=== PATIENT | female | born 1965 | race Caucasian/White ===

== ENCOUNTER → 2016-10-15 | Outpatient (CLI) | payer OTHER | END | disposition home or self-care (01) | LOC: LABWHC1 13:56 | PROVIDERS: ATTEND Internal Medicine Interventional Cardiology | DX: E03.9 Hypothyroidism, unspecified (principal); I25.10 Atherosclerotic heart disease of native coronary artery without angina pectoris | CPT/HCPCS: 36415; 84439; 84443 ==

== ENCOUNTER → 2016-12-01 | Outpatient (CLI) | payer OTHER | LOC: LABWHC1 09:10 | PROVIDERS: ATTEND Internal Medicine Interventional Cardiology | DX: E03.9 Hypothyroidism, unspecified (principal) | CPT/HCPCS: 36415; 84439; 84443 ==

== ENCOUNTER → 2017-04-21 | Outpatient (CLI) | payer OTHER | END | disposition home or self-care (01) | LOC: LABWHC1 14:42 | PROVIDERS: ATTEND Internal Medicine Interventional Cardiology | DX: E03.9 Hypothyroidism, unspecified (principal) | CPT/HCPCS: 36415; 84439; 84443 ==

== ENCOUNTER → 2017-06-04 | Outpatient (CLI) | payer OTHER ==
--- NOTE | 2017-06-04 13:45 | MM ---
Reason for exam: screening (asymptomatic). Last mammogram was performed 1 year and 4 months ago. History: Patient is postmenopausal. Physical Findings: A clinical breast exam by your physician is recommended on an annual basis and results should be correlated with mammographic findings. MG Screening Mammo w CAD Bilateral CC and MLO view(s) were taken. Prior study comparison: January 28, 2016, bilateral MG screening mammo w CAD. There are scattered fibroglandular densities. Finding: There are typically benign calcifications in the left breast. No significant changes in finding since January 28, 2016. ASSESSMENT: Benign, BI-RAD 2 RECOMMENDATION: Routine screening mammogram of both breasts in 1 year.
== END | disposition home or self-care (01) ==
LOC: RADMAMWWP 07:01
PROVIDERS: ATTEND Family Medicine
DX: Z12.31 Encounter for screening mammogram for malignant neoplasm of breast (principal)

== ENCOUNTER → 2017-09-29 | Outpatient (CLI) | payer OTHER ==
[2017-09-29 11:28] LABS: T4, Free (Free Thyroxine) 1.07 ng/dL (0.78-2.19)
== END | disposition home or self-care (01) ==
LOC: LABWHC1 10:09
PROVIDERS: ATTEND Internal Medicine Interventional Cardiology
DX: I25.10 Atherosclerotic heart disease of native coronary artery without angina pectoris (principal); E03.9 Hypothyroidism, unspecified
CPT/HCPCS: 36415; 84439; 84443

== ENCOUNTER → 2017-11-09 | Outpatient (CLI) | payer OTHER ==
[2017-11-09 12:14] LABS: T4, Free (Free Thyroxine) 1.03 ng/dL (0.78-2.19)
== END | disposition home or self-care (01) ==
LOC: LABWHC1 11:19
PROVIDERS: ATTEND Internal Medicine Interventional Cardiology
DX: E87.5 Hyperkalemia (principal)
CPT/HCPCS: 36415; 84439; 84443

== ENCOUNTER → 2018-06-07 | Outpatient (CLI) | payer MEDICARE, OTHER ==
--- NOTE | 2018-06-08 08:52 | MM ---
Reason for exam: screening (asymptomatic). Last mammogram was performed 1 year ago. History: Patient is postmenopausal. Physical Findings: A clinical breast exam by your physician is recommended on an annual basis and results should be correlated with mammographic findings. MG 3D Screening Mammo W/Cad Bilateral CC and MLO view(s) were taken. Prior study comparison: June 04, 2017, bilateral MG screening mammo w CAD. January 28, 2016, bilateral MG screening mammo w CAD. There are scattered fibroglandular densities. No suspicious abnormality. No significant changes when compared with prior studies. ASSESSMENT: Negative, BI-RAD 1 RECOMMENDATION: Routine screening mammogram of both breasts in 1 year.
== END ==
LOC: RADMAMWWP 09:39
PROVIDERS: ATTEND Family Medicine
DX: Z12.31 Encounter for screening mammogram for malignant neoplasm of breast (principal)
CPT/HCPCS: 77063; 77067

== ENCOUNTER 2019-05-23 11:22 | Day surgery (SDC) | payer MEDICARE, OTHER ==
[2019-05-23 12:28] VITALS: RESP 18; TEMP 98.5
[2019-05-23 14:39] VITALS: BP 146/80; PULSE 76
--- NOTE | 2019-05-23 14:53 | US ---
EXAMINATION TYPE: US FNA thyroid first lesion DATE OF EXAM: 05/23/2019 COMPARISON: NONE HISTORY: Thyroid nodule. Maximal barrier technique was utilized. After informed consent, skin overlying the isthmus thyroid l esion was localized with ultrasound and the overlying skin prepped and draped. Ultrasound was utilize d using sterile technique. Lidocaine was used for local anesthesia. Five passes with a 25-gauge need le were made into the nodule and aspirated specimen was submitted to cytology. Following the procedu re hemostasis achieved. No immediate complication. The patient discharged in stable condition. IMPRESSION: STATUS POST ULTRASOUND GUIDED FINE NEEDLE ASPIRATION OF THYROID NODULE, PATHOLOGY IS PEND ING. THIS PROCEDURE WAS PERFORMED BY THE UNDERSIGNED.
== END 2019-05-23 14:20 | disposition home or self-care (01) ==
LOC: RADPROMAIN 11:22
PROVIDERS: ATTEND Family Medicine
DX: E04.1 Nontoxic single thyroid nodule (principal)
CPT/HCPCS: 10005; 88173; 88305

== ENCOUNTER 2019-08-24 06:44 | Day surgery (SDC) | payer MEDICARE, OTHER ==
[2019-08-19 10:11] VITALS: BMI 40.7
[~2019-08-24 06:44] MED LIST: LACTATED RINGERS 1,000 ML IV SCH; LIDOCAINE 1% 20 ML VIAL (10MG/ML) FOR IV START INTRADERMA PRN
[2019-08-24 07:22] VITALS: TEMP 97.1
[2019-08-24 07:33] LABS: Glucose,Whole Blood 122 mg/dL (75-99)
[2019-08-24] MEDS ORDERED: PROPOFOL 10 MG/ML 20 ML VIAL IV ONE (07:40)
--- NOTE | 2019-08-24 07:59 | P.GSHP ---
History of Present Illness H&P Date: 08/24/19 Chief Complaint: Screening colonoscopy This a 54-year-old female who presents today for screening colonoscopy. Patient has a strong family history of colon cancer with her mother having rectal cancer. Past Medical History Past Medical History: Coronary Artery Disease (CAD), Diabetes Mellitus, GERD/Reflux, Hyperlipidemia, Hypertension, Myocardial Infarction ([place]), Osteoarthritis (OA), Thyroid Disorder Additional Past Medical History / Comment(s): thyroid nodule Last Myocardial Infarction Date:: 2012 History of Any Multi-Drug Resistant Organisms: None Reported Past Surgical History: Section, Heart Catheterization With Stent, Hysterectomy, Orthopedic Surgery Additional Past Surgical History / Comment(s): RT CARPAL TUNNEL release, left wrist fatty tissue removal. COLONOSCOPY Past Anesthesia/Blood Transfusion Reactions: No Reported Reaction Date of Last Stent Placement:: 2012 Smoking Status: Current some day smoker - Past Family History Father Family Medical History: Myocardial Infarction ([place]) Mother Family Medical History: Cancer Medications and Allergies Home Medications Medication Instructions Recorded Confirmed Type Atorvastatin [Lipitor] 40 mg PO DAILY 02/27/14 08/24/19 History Metoprolol Tartrate [Lopressor] 25 mg PO BID 02/27/14 08/24/19 History Nitroglycerin Sl Tabs [Nitrostat] 0.4 mg SL Q5M PRN 02/27/14 08/24/19 History Aspirin 81 mg PO DAILY 05/09/14 08/24/19 History ARIPiprazole [Abilify] 5 mg PO DAILY 05/16/19 08/24/19 History Gabapentin [Neurontin] 600 mg PO BID 05/16/19 08/24/19 History Insulin Glargine [Lantus] 30 units SQ DAILY 05/16/19 08/24/19 History Levothyroxine Sodium [Synthroid] 25 mcg PO DAILY 05/16/19 08/24/19 History Liraglutide [Victoza 2-Boubacar] 1.2 mg SQ DAILY 05/16/19 08/24/19 History Lisinopril 20 mg PO DAILY 05/16/19 08/24/19 History Omeprazole [PriLOSEC] 20 mg PO AC-BID 05/16/19 08/24/19 History buPROPion [Wellbutrin] 100 mg PO BID 05/16/19 08/24/19 History metFORMIN HCL 1,000 mg PO BID 05/16/19 08/24/19 History Allergies Allergy/AdvReac Type Severity Reaction Status Date / Time bee venom protein (honey bee) Allergy Rash/Hives Verified 08/19/19 09:57 coconut Allergy Rash/Hives Verified 08/19/19 09:57 Penicillins Allergy Rash/Hives Verified 08/19/19 09:57 Surgical - Exam Vital Signs Temp Pulse Resp BP 97.1 F L 92 14 156/78 08/24/19 07:21 08/24/19 07:21 08/24/19 07:21 08/24/19 07:21 - General well developed, well nourished, no distress - Eyes PERRL - ENT normal pinna - Neck no masses - Respiratory normal expansion - Cardiovascular Rhythm: regular - Abdomen Abdomen: soft, non tender Results - Labs Abnormal Lab Results - Last 24 Hours (Table) 08/24/19 Range/Units 07:26 POC Glucose (mg/dL) 122 H (75-99) mg/dL Assessment and Plan Assessment: We will perform screening colonoscopy
--- NOTE | 2019-08-24 08:11 | P.OP ---
Date of Procedure: 08/24/19 Preoperative Diagnosis: Screening colonoscopy Postoperative Diagnosis: Diverticulosis Procedure(s) Performed: Colonoscopy Anesthesia: MAC Surgeon: Samm Morris Pathology: none sent Condition: stable Disposition: PACU Description of Procedure: The patient's placed on the endoscopy table in the lateral position. She received IV sedation. Digital rectal exam was performed which revealed a few external hemorrhoids. Flexible colonoscope was then placed patient anus passed rotator entire colon. The ileocecal valve was visually. The cecum, ascending and transverse colon appeared normal. In the descending and sigmoid colon there is mild diverticular changes. There is no evidence of diverticula is. The scope was then brought back the rectum and this appeared normal. Scope withdrawn for patient.
[2019-08-24 08:27] VITALS: BP 126/72; PULSE 83; RESP 16
== END 2019-08-24 08:47 | disposition home or self-care (01) ==
LOC: ORWHC2ENDO 06:44
PROVIDERS: ATTEND Surgery
DX: Z12.11 Encounter for screening for malignant neoplasm of colon (principal); K57.30 Diverticulosis of large intestine without perforation or abscess without bleeding; K64.4 Residual hemorrhoidal skin tags; Z80.0 Family history of malignant neoplasm of digestive organs; I25.2 Old myocardial infarction; I25.10 Atherosclerotic heart disease of native coronary artery without angina pectoris; I10 Essential (primary) hypertension; E78.5 Hyperlipidemia, unspecified; E11.9 Type 2 diabetes mellitus without complications; M19.90 Unspecified osteoarthritis, unspecified site; K21.9 Gastro-esophageal reflux disease without esophagitis; F41.9 Anxiety disorder, unspecified; E66.01 Morbid (severe) obesity due to excess calories; E04.1 Nontoxic single thyroid nodule; F17.210 Nicotine dependence, cigarettes, uncomplicated; Z95.5 Presence of coronary angioplasty implant and graft; Z88.0 Allergy status to penicillin; Z91.018 Allergy to other foods; Z91.030 Bee allergy status; Z79.890 Hormone replacement therapy; Z79.4 Long term (current) use of insulin; Z79.82 Long term (current) use of aspirin; Z98.891 History of uterine scar from previous surgery; Z90.710 Acquired absence of both cervix and uterus; Z68.41 Body mass index [BMI] 40.0-44.9, adult; Z82.49 Family history of ischemic heart disease and other diseases of the circulatory system; Z79.899 Other long term (current) drug therapy
CPT/HCPCS: J2704; G0105; 45378

== ENCOUNTER → 2019-09-13 | Outpatient (CLI) | payer MEDICARE, OTHER ==
--- NOTE | 2019-09-14 11:21 | MM ---
Reason for exam: screening (asymptomatic). Last mammogram was performed 1 year and 3 months ago. History: Patient is postmenopausal. Physical Findings: A clinical breast exam by your physician is recommended on an annual basis and results should be correlated with mammographic findings. MG Screening Mammo w CAD Bilateral CC and MLO view(s) were taken. Prior study comparison: June 07, 2018, bilateral MG 3d screening mammo w/cad. June 04, 2017, bilateral MG screening mammo w CAD. There are scattered fibroglandular densities. No suspicious abnormality. No significant changes when compared with prior studies. ASSESSMENT: Negative, BI-RAD 1 RECOMMENDATION: Routine screening mammogram of both breasts in 1 year.
== END | disposition home or self-care (01) ==
LOC: RADMAMWWP 07:42
PROVIDERS: ATTEND Family Medicine
DX: Z12.31 Encounter for screening mammogram for malignant neoplasm of breast (principal)
CPT/HCPCS: 77067

== ENCOUNTER → 2020-12-13 | Outpatient (CLI) | payer MEDICARE, OTHER ==
[2020-12-13 07:37] LABS: African American GFR (CKD) >90 (>60 ml/min/1.73 sqM); Blood Urea Nitrogen 14 mg/dL (7-17); Non-African American GFR(CKD) >90 (>60 ml/min/1.73 sqM)
--- NOTE | 2020-12-13 08:29 | CT ---
EXAMINATION TYPE: CT brain w con DATE OF EXAM: 12/13/2020 COMPARISON: MRI brain February 26, 2016 HISTORY: syncope and palpitations. CT DLP: 1012.70 mGycm Automated exposure control for dose reduction was used. CONTRAST: CT scan of the head is performed with IV Contrast, patient injected with 100 mL of Isovue 300. FINDINGS: There is no abnormal enhancing mass or midline shift identified. The ventricles and sulci are within normal limits in size for patient's age. Morgan-white matter differentiation fairly well maintained. I ncreased fluid signal left mastoid air cells is redemonstrated. The globes are intact and the visuali zed sinuses remain clear. Nasal septum remains deviated to right of midline. IMPRESSION: Persistent increased fluid signal left mastoid air cells, correlate clinically to exclude acute mastoiditis. No suspicious enhancing masses noted.
== END | disposition home or self-care (01) ==
LOC: RADCTMAIN 06:56
PROVIDERS: ATTEND Family Medicine
DX: R55 Syncope and collapse (principal); R00.2 Palpitations
CPT/HCPCS: 82565; 84520; 70460; 36415; Q9967

== ENCOUNTER 2020-12-30 16:36 | Emergency (ER) | payer MEDICARE, OTHER ==
[2020-12-30 16:49] VITALS: RESP 18; TEMP 97.8
--- NOTE | 2020-12-30 16:56 | ED ---
Extremity Problem HPI - General Chief complaint: Extremity Problem,Nontraumatic Stated complaint: Knee pain Time Seen by Provider: 12/30/20 16:49 Source: patient Mode of arrival: wheelchair Limitations: physical limitation - History of Present Illness Initial comments: 55-year-old female presents to emergency Department with a chief complaint of right knee pain. Patient reports this occurred about 2 hours prior to arrival while she was walking on the stairs. Patient reports a sudden pop in the popliteal region of the right knee and was not able to fully flex the knee afterward. Patient reports the pain is only localized to the popliteal region with occasional radiation to the hamstring. Reports the pain is exacerbated with flexion but not extension. Denies any numbness or tingling. Denies any pivoting injuries. - Related Data Home Medications Medication Instructions Recorded Confirmed Atorvastatin [Lipitor] 40 mg PO DAILY 02/27/14 08/24/19 Metoprolol Tartrate [Lopressor] 25 mg PO BID 02/27/14 08/24/19 Nitroglycerin Sl Tabs [Nitrostat] 0.4 mg SL Q5M PRN 02/27/14 08/24/19 Aspirin 81 mg PO DAILY 05/09/14 08/24/19 ARIPiprazole [Abilify] 5 mg PO DAILY 05/16/19 08/24/19 Gabapentin [Neurontin] 600 mg PO BID 05/16/19 08/24/19 Insulin Glargine [Lantus] 30 units SQ DAILY 05/16/19 08/24/19 Levothyroxine Sodium [Synthroid] 25 mcg PO DAILY 05/16/19 08/24/19 Liraglutide [Victoza 2-Boubacar] 1.2 mg SQ DAILY 05/16/19 08/24/19 Omeprazole [PriLOSEC] 20 mg PO AC-BID 05/16/19 08/24/19 buPROPion [Wellbutrin] 100 mg PO BID 05/16/19 08/24/19 lisinopriL 20 mg PO DAILY 05/16/19 08/24/19 metFORMIN HCL 1,000 mg PO BID 05/16/19 08/24/19 Allergies Allergy/AdvReac Type Severity Reaction Status Date / Time bee venom protein (honey bee) Allergy Rash/Hives Verified 12/30/20 16:50 coconut Allergy Rash/Hives Verified 12/30/20 16:50 Penicillins Allergy Rash/Hives Verified 12/30/20 16:50 Review of Systems ROS Statement: Those systems with pertinent positive or pertinent negative responses have been documented in the HPI. ROS Other: All systems not noted in ROS Statement are negative. Past Medical History Past Medical History: Coronary Artery Disease (CAD), Diabetes Mellitus, Hyperlipidemia, Hypertension, Myocardial Infarction ([place]), Osteoarthritis (OA), Thyroid Disorder Additional Past Medical History / Comment(s): thyroid nodule Last Myocardial Infarction Date:: 2012 History of Any Multi-Drug Resistant Organisms: None Reported Past Surgical History: Section, Heart Catheterization With Stent, Hysterectomy, Orthopedic Surgery Additional Past Surgical History / Comment(s): RT CARPAL TUNNEL release, left wrist fatty tissue removal Past Anesthesia/Blood Transfusion Reactions: No Reported Reaction Date of Last Stent Placement:: 2012 Past Psychological History: Anxiety Smoking Status: Current every day smoker Past Alcohol Use History: None Reported Past Drug Use History: None Reported - Past Family History Father Family Medical History: Myocardial Infarction ([place]) Mother Family Medical History: Cancer General Exam Limitations: physical limitation General appearance: alert, in no apparent distress, obese Head exam: Present: atraumatic, normocephalic, normal inspection Eye exam: Present: normal appearance, PERRL, EOMI Pupils: Present: normal accommodation ENT exam: Present: normal exam, normal oropharynx, mucous membranes moist Neck exam: Present: normal inspection, full ROM. Absent: tenderness Respiratory exam: Present: normal lung sounds bilaterally. Absent: respiratory distress, wheezes Cardiovascular Exam: Present: regular rate, normal rhythm, normal heart sounds. Absent: systolic murmur Extremities exam: Present: normal inspection, tenderness (Right popliteal tenderness), normal capillary refill, other (Palpable DP and PT bilaterally. Sensation intact in right lower extremity.). Absent: full ROM (Limited range of motion with flexion), pedal edema, joint swelling, calf tenderness Back exam: Present: normal inspection, full ROM. Absent: tenderness, CVA tenderness (R), CVA tenderness (L) Neurological exam: Present: alert, oriented X3 Psychiatric exam: Present: normal affect, normal mood Skin exam: Present: warm, dry, intact, normal color Course Vital Signs 12/30/20 12/30/20 16:47 17:45 Temperature 97.8 F 97.8 F Pulse Rate 85 80 Respiratory 18 18 Rate Blood Pressure 146/86 119/76 O2 Sat by Pulse 95 95 Oximetry Medical Decision Making - Medical Decision Making 55-year-old female presents to emergency Department with a chief complaint of right knee pain. Physical examination, patient is neurovascularly intact. X- ray shows osteoarthritic changes but no other acute findings. I suspect the patient had a ruptured Elias's cyst. I did offer an immobilizer, she declined. I advised to follow-up with an auricular detoxification specialist. Return parameters were discussed with patient is an attending ago. Case discussed with Disposition Clinical Impression: Left knee pain Disposition: HOME SELF-CARE Condition: Stable Instructions (If sedation given, give patient instructions): Bakers Cyst (ED) Additional Instructions: Please return to the Emergency Department if symptoms worsen or any other concerns. Is patient prescribed a controlled substance at d/c from ED?: No Referrals: Yajaira Lizama DO [Primary Care Provider] - 1-2 days Darwin Benites DO [Doctor of Osteopathic Medicine] - 1-2 days Harman Benites DO [Doctor of Osteopathic Medicine] - 1-2 days Time of Disposition: 17:35
--- NOTE | 2020-12-30 17:25 | XR ---
EXAMINATION TYPE: XR knee complete RT DATE OF EXAM: 12/30/2020 COMPARISON: NONE HISTORY: Knee pain TECHNIQUE: 3 views FINDINGS: There is spurring of the femoral and tibial condyles. I see no fracture nor dislocation. Th ere is no sign of joint effusion. There is mild spurring on the patella. IMPRESSION: Hypertrophic osteoarthritis. No fracture. Mild medial joint space narrowing.
[2020-12-30 17:46] VITALS: BP 119/76; PULSE 80
== END 2020-12-30 17:45 | disposition home or self-care (01) ==
LOC: EC 16:36
DX: M17.11 Unilateral primary osteoarthritis, right knee (principal); E11.9 Type 2 diabetes mellitus without complications; I25.10 Atherosclerotic heart disease of native coronary artery without angina pectoris; E07.9 Disorder of thyroid, unspecified; E78.5 Hyperlipidemia, unspecified; I10 Essential (primary) hypertension; I21.9 Acute myocardial infarction, unspecified; F17.200 Nicotine dependence, unspecified, uncomplicated; Z79.84 Long term (current) use of oral hypoglycemic drugs; Z79.890 Hormone replacement therapy
CPT/HCPCS: 99283

== ENCOUNTER → 2021-01-22 | Outpatient (CLI) | payer MEDICARE, OTHER ==
--- NOTE | 2021-01-22 09:52 | MR ---
EXAMINATION TYPE: MR knee RT wo con DATE OF EXAM: 01/22/2021 COMPARISON: Right knee x-ray December 30, 2020 HISTORY: Right knee pain, going down stairs heard a pop. Pain and swelling thru entire Right Knee TECHNIQUE: Multiplanar, multisequence imaging of the right knee is performed without IV contrast. FINDINGS: MEDIAL MENISCUS: Medial extrusion medial meniscus on coronal images Oblique signal posterior horn med ial meniscus. LATERAL MENISCUS: Anterior and posterior horns are intact without tear. CRUCIATE LIGAMENTS: The anterior and posterior cruciate ligaments are intact and unremarkable. COLLATERAL LIGAMENTS: The medial collateral ligament and lateral collateral ligament complex are inta ct. Mild fluid signal surrounds medial collateral ligament with slight medial bulging. EXTENSOR MECHANISM: Visualized quadriceps and patellar tendons are intact. EFFUSION: Large suprapatellar joint effusion. POPLITEAL CYST: Moderate to large popliteal/dalton cyst. With ill-defined fluid extending inferiorly. TRICOMPARTMENT SPACES: Moderate to severe narrowing with mild spurring patellofemoral compartment. Mo derate narrowing and spurring medial tibial femoral compartment. Mild narrowing and moderate spurring lateral tibiofemoral compartment. CARTILAGE: Chondromalacia patella with marked thinning of articular cartilage along posterior patella r pole. Cartilaginous loss medial tibiofemoral compartment. There is near full-thickness loss both le vels noted. BONE MARROW SIGNAL: T2 heterogeneous lesions likely subchondral cysts in the tibial plateau and in th e fibular head along with posterior patellar articulation. OTHER: No additional significant abnormality is appreciated. IMPRESSION: 1. Large suprapatellar joint effusion. 2. Tricompartment degenerative changes greatest patellofemoral and medial tibiofemoral compartments a s detailed above. 3. Moderate to borderline large size leaking popliteal cyst. 4. Intrasubstance tear posterior horn medial meniscus. 5. Mild MCL sprain.
== END | disposition home or self-care (01) ==
LOC: RADMRIMAIN 07:55
PROVIDERS: ATTEND Family Medicine
DX: S83.241A Other tear of medial meniscus, current injury, right knee, initial encounter (principal); M17.11 Unilateral primary osteoarthritis, right knee; M66.0 Rupture of popliteal cyst; M23.321 Other meniscus derangements, posterior horn of medial meniscus, right knee

== ENCOUNTER 2021-03-20 11:59 | Emergency (ER) | payer MEDICARE, OTHER ==
[2021-03-20 13:42] LABS: INR 0.9 (<1.2); Partial Thromboplastin Time 24.4 sec (22.0-30.0); Prothrombin Time 10.1 sec (9.0-12.0)
--- NOTE | 2021-03-20 14:14 | US ---
EXAMINATION TYPE: US venous doppler duplex LE RT DATE OF EXAM: 03/20/2021 1:06 PM COMPARISON: NONE CLINICAL HISTORY: pain. edema SIDE PERFORMED: Right TECHNIQUE: The lower extremity deep venous system is examined utilizing real time linear array sonog fidel with graded compression, doppler sonography and color-flow sonography. VESSELS IMAGED: Common Femoral Vein Deep Femoral Vein Greater Saphenous Vein * Femoral Vein Popliteal Vein Small Saphenous Vein * Proximal Calf Veins (* superficial vessels) Right Leg: Negative for DVT IMPRESSION: Grayscale, color doppler, spectral doppler imaging performed of the deep veins of the lo wer extremities. There is normal flow, compressibility, vascular waveforms.
--- NOTE | 2021-03-20 14:29 | ED ---
Extremity Problem HPI - General Chief complaint: Extremity Problem,Nontraumatic Stated complaint: Leg swelling Time Seen by Provider: 03/20/21 12:25 Source: patient, RN notes reviewed Mode of arrival: ambulatory Limitations: no limitations - History of Present Illness Initial comments: 56-year-old female presents to emergency room complaining of right lower extremity swelling and tenderness for the past several days. She notes she does take Plavix. She denied any injury or trauma to her right lower extremity. She does have full range of motion sensation in her right foot ankle and lower leg. She notes she was concerned due to the swelling for possible DVT. She denied any other issues or complaints at this time. She denied any chest pain sh ortness of breath headache nausea vomiting diarrhea constipation fever fatigue chills. - Related Data Home Medications Medication Instructions Recorded Confirmed Atorvastatin [Lipitor] 40 mg PO DAILY 02/27/14 08/24/19 Metoprolol Tartrate [Lopressor] 25 mg PO BID 02/27/14 08/24/19 Nitroglycerin Sl Tabs [Nitrostat] 0.4 mg SL Q5M PRN 02/27/14 08/24/19 Aspirin 81 mg PO DAILY 05/09/14 08/24/19 ARIPiprazole [Abilify] 5 mg PO DAILY 05/16/19 08/24/19 Gabapentin [Neurontin] 600 mg PO BID 05/16/19 08/24/19 Insulin Glargine [Lantus] 30 units SQ DAILY 05/16/19 08/24/19 Levothyroxine Sodium [Synthroid] 25 mcg PO DAILY 05/16/19 08/24/19 Liraglutide [Victoza 2-Boubacar] 1.2 mg SQ DAILY 05/16/19 08/24/19 Omeprazole [PriLOSEC] 20 mg PO AC-BID 05/16/19 08/24/19 buPROPion [Wellbutrin] 100 mg PO BID 05/16/19 08/24/19 lisinopriL 20 mg PO DAILY 05/16/19 08/24/19 metFORMIN HCL [Glucophage] 1,000 mg PO BID 05/16/19 08/24/19 Allergies Allergy/AdvReac Type Severity Reaction Status Date / Time bee venom protein (honey bee) Allergy Rash/Hives Verified 03/20/21 12:20 coconut Allergy Rash/Hives Verified 03/20/21 12:20 Penicillins Allergy Rash/Hives Verified 03/20/21 12:20 Review of Systems ROS Statement: Those systems with pertinent positive or pertinent negative responses have been documented in the HPI. ROS Other: All systems not noted in ROS Statement are negative. Past Medical History Past Medical History: Coronary Artery Disease (CAD), Diabetes Mellitus, Hyperlipidemia, Hypertension, Myocardial Infarction ([place]), Osteoarthritis (OA), Thyroid Disorder Additional Past Medical History / Comment(s): thyroid nodule Last Myocardial Infarction Date:: 2012 History of Any Multi-Drug Resistant Organisms: None Reported Past Surgical History: Section, Heart Catheterization With Stent, Hysterectomy, Orthopedic Surgery Additional Past Surgical History / Comment(s): RT CARPAL TUNNEL release, left wrist fatty tissue removal Past Anesthesia/Blood Transfusion Reactions: No Reported Reaction Date of Last Stent Placement:: 2012 Past Psychological History: Anxiety Smoking Status: Current some day smoker Past Alcohol Use History: None Reported Past Drug Use History: None Reported - Past Family History Father Family Medical History: Myocardial Infarction ([place]) Mother Family Medical History: Cancer General Exam Limitations: no limitations General appearance: alert, in no apparent distress Head exam: Present: atraumatic, normocephalic, normal inspection Eye exam: Present: normal appearance, PERRL, EOMI. Absent: scleral icterus, conjunctival injection, periorbital swelling Neck exam: Present: normal inspection Respiratory exam: Present: normal lung sounds bilaterally. Absent: respiratory distress, wheezes, rales, rhonchi, stridor Cardiovascular Exam: Present: regular rate, normal rhythm, normal heart sounds. Absent: systolic murmur, diastolic murmur, rubs, gallop, clicks Right Lower Leg exam: Present: full ROM, swelling (1+). Absent: normal inspection, tenderness, abrasion, laceration, ecchymosis, deformity, crepitus, dislocation, erythema, Homans' sign Neurological exam: Present: alert, oriented X3 Psychiatric exam: Present: normal affect, normal mood Skin exam: Present: warm, dry, intact, normal color. Absent: rash Course Vital Signs 03/20/21 12:20 Temperature 98.3 F Pulse Rate 78 Respiratory 20 Rate Blood Pressure 135/83 O2 Sat by Pulse 96 Oximetry Medical Decision Making - Medical Decision Making 56-year-old female complaining of right lower extremity swelling. Coagulation studies, ultrasound of the right lower extremity ordered. Labs within normal limits. Ultrasound negative for any DVT. Patient's leg does not appear to be infected, is not erythematous no signs or symptoms of infection. Case discussed with Dr. Rolle, patient discharge home with follow-up to primary care. - Lab Data Lab Results 03/20/21 Range/Units 13:22 PT 10.1 (9.0-12.0) sec INR 0.9 (<1.2) APTT 24.4 (22.0-30.0) sec - Radiology Data Radiology results: report reviewed, image reviewed Right lower extremity ultrasound: Negative for DVT. Disposition Clinical Impression: Edema of lower extremity Disposition: HOME SELF-CARE Condition: Stable Instructions (If sedation given, give patient instructions): Leg Edema (ED) Additional Instructions: Please return to the Emergency Department if symptoms worsen or any other concerns. Follow-up with primary care in the next 1-2 days. Wear compression stockings to help with fluid retention. Is patient prescribed a controlled substance at d/c from ED?: No Referrals: Radha Morel DO [Primary Care Provider] - 1-2 days Time of Disposition: 14:29
[2021-03-20 14:55] VITALS: BP 138/88; PULSE 73; RESP 18; TEMP 98
== END 2021-03-20 14:55 | disposition home or self-care (01) ==
LOC: EC 11:59
DX: R60.0 Localized edema (principal); E11.9 Type 2 diabetes mellitus without complications; I10 Essential (primary) hypertension; I25.2 Old myocardial infarction; I25.10 Atherosclerotic heart disease of native coronary artery without angina pectoris; E78.5 Hyperlipidemia, unspecified; E04.1 Nontoxic single thyroid nodule; M19.90 Unspecified osteoarthritis, unspecified site; F17.200 Nicotine dependence, unspecified, uncomplicated; Z79.899 Other long term (current) drug therapy; Z79.82 Long term (current) use of aspirin; Z79.890 Hormone replacement therapy; Z79.4 Long term (current) use of insulin; Z95.5 Presence of coronary angioplasty implant and graft; Z91.030 Bee allergy status; Z88.0 Allergy status to penicillin; Z91.018 Allergy to other foods
CPT/HCPCS: 36415; 85610; 85730; 99284

== ENCOUNTER → 2021-03-21 | Outpatient (CLI) | payer MEDICARE, OTHER ==
--- NOTE | 2021-03-21 21:22 | MR ---
EXAMINATION TYPE: MR lumbar spine wo con DATE OF EXAM: 03/21/2021 COMPARISON: NONE HISTORY: Low back pain, neuropathy in both legs. Radiculopathy per order. TECHNIQUE: Multiplanar, multisequence imaging of the lumbar spine is performed without IV contrast. FINDINGS: Sagittal images of the lumbar spine show vertebral body heights and alignment to appear sat isfactory. Multilevel disc desiccation with relative sparing of the L5-S1 level. Disc space heights a re maintained. The conus medullaris is normal in position and signal ending at L1-L2 disc space level . The bone marrow signal intensity is within normal limits. Axial images show T12-L1 through the L2-L3 levels to appear within normal limits. Axial images at L3-L4 level shows small left foraminal disc protrusion and mild facet arthropathy yvette aterally. Effacement of the left lateral recess is present. Mild effacement of the left anterolateral thecal sac due to inferior extrusion component sagittal image 7. Patent bilateral neural foramina. Axial images at L4-L5 level shows moderate facet degenerative changes bilaterally. Spinal canal is pr eserved. Patent bilateral neural foramina. Axial images at L5-S1 level mild facet arthropathy bilaterally. Spinal canal is preserved. The bilate ral neural foramina are patent. The paraspinal muscle bulk is preserved. There is 5.0 cm T2 hyperintense round lesion right kidney ax ial image 14 felt to reflect benign thin-walled cyst. IMPRESSION: Multilevel degenerative changes in the mid to lower lumbar spine as detailed above
== END | disposition home or self-care (01) ==
LOC: RADMRIMAIN 15:24
PROVIDERS: ATTEND Family Medicine
DX: M51.36 Other intervertebral disc degeneration, lumbar region (principal); M54.16 Radiculopathy, lumbar region
CPT/HCPCS: 72148

== ENCOUNTER → 2021-05-21 | Outpatient (CLI) | payer MEDICARE, OTHER ==
[2021-05-21 11:42] LABS: Basophils # (A) 0.1 k/uL (0-0.2); Basophils % (A) 1 %; Eosinophils # (A) 0.3 k/uL (0-0.7); Eosinophils % (A) 2 %; HCT 44.8 % (34.0-46.0); HGB 15.4 gm/dL (11.4-16.0); Lymphocytes # (A) 3.2 k/uL (1.0-4.8); Lymphocytes % (A) 26 %; MCH 33.4 pg (25.0-35.0); MCHC 34.4 g/dL (31.0-37.0); MCV 97.1 fL (80.0-100.0); Mean Platelet Volume 9.1; Monocytes # (A) 0.5 k/uL (0-1.0); Monocytes % (A) 4 %; Neutrophils # (A) 7.8 k/uL (1.3-7.7); Neutrophils % (A) 65 %; Platelet Count 247 k/uL (150-450); RBC 4.61 m/uL (3.80-5.40); RDW 13.8 % (11.5-15.5)
[2021-05-21 11:50] LABS: Potassium 4.6 mmol/L (3.5-5.1)
== END | disposition home or self-care (01) ==
LOC: LABPAT 10:26
PROVIDERS: ATTEND Orthopaedic Surgery
DX: Z01.812 Encounter for preprocedural laboratory examination (principal); M23.91 Unspecified internal derangement of right knee
CPT/HCPCS: 36415; 80051; 85025; 93005

== ENCOUNTER 2021-06-13 13:05 | Day surgery (SDC) | payer MEDICARE, OTHER ==
[2021-06-11 14:58] VITALS: BMI 39.1
--- NOTE | 2021-06-12 19:38 | HP ---
HISTORY AND PHYSICAL DATE OF SURGERY: 06/13/2021 Bety Cota is a 56-year-old patient seen with progressive right knee pain. We discussed options for treatment. She elected to proceed with right knee arthroscopy. Consent was obtained. PAST MEDICAL HISTORY: [id number] diabetes, hypertension, hypothyroidism. PAST SURGICAL HISTORY: section, wrist surgery. DAILY MEDICATIONS: Unknown. ALLERGIES: PENICILLIN. SOCIAL HISTORY: She currently smokes cigarettes. PHYSICAL EVALUATION OF THE RIGHT KNEE: Range of motion is negative 2/3 to 95. There is a large effusion present. She has tenderness along the medial joint line with positive medial Magdalena's. Ligaments stable. Hip rotation without pain. Distal neurovascular exam intact. IMAGING: Right knee radiographs revealed moderate medial compartment osteoarthritis. MRI right knee revealed a medial meniscal tear, large effusion and osteoarthritic changes. IMPRESSION: 1. Internal derangement of right knee with medial meniscal tear. 2. Right knee osteoarthritis. 3. Hypertension. 4. Hyperlipidemia. 5. Hypothyroidism. PLAN: Right knee arthroscopy with partial meniscectomy and debridement. MMODL / IJN: [id number] /
[2021-06-13] MEDS ORDERED: LIDOCAINE 1% (10MG/ML) FOR IV START INTRADERMA PRN (13:42)
[2021-06-13] MEDS ORDERED: MIDAZOLAM 2 MG/2 ML VIAL IV PRN (13:42)
[2021-06-13] MEDS ORDERED: LACTATED RINGERS 1,000 ML IV SCH (13:42)
[2021-06-13] MEDS ORDERED: DEXAMETHASONE SOD PHOSPHATE 4 MG/ML 1 ML VIAL IV ONE (13:42)
[2021-06-13] MEDS ORDERED: HYDROmorphone 0.5 MG/0.5 ML SYRINGE IVP PRN (13:42)
[2021-06-13] MEDS ORDERED: ONDANSETRON 4 MG/2 ML VIAL IVP ONE (13:42)
[2021-06-13 14:19] LABS: Glucose,Whole Blood 101 mg/dL (75-99)
[2021-06-13] MEDS ORDERED: KETAMINE 10 MG/ML 20 ML VIAL ONE (15:26)
[2021-06-13] MEDS ORDERED: fentaNYL (PF) 50 MCG/ML 2 ML AMP ONE (15:26)
[2021-06-13] MEDS ORDERED: CHLOROPROCAINE 3% 30 MG/ML 20 ML VIAL ONE (15:26)
[2021-06-13] MEDS ORDERED: MIDAZOLAM 2 MG/2 ML VIAL ONE (15:26)
[2021-06-13] MEDS ORDERED: PROPOFOL 10 MG/ML 20 ML VIAL IV ONE (15:26)
[2021-06-13] MEDS ORDERED: BUPIVACAINE (PF) 0.25% 30 ML VIAL INTRAARTIC ONE ×2 (15:53→16:05)
[2021-06-13] MEDS ORDERED: LACTATED RINGERS 1,000 ML IV ONE (16:14)
[2021-06-13 16:17] VITALS: TEMP 97.1
--- NOTE | 2021-06-13 16:20 | P.OP ---
Date of Procedure: 06/13/21 Preoperative Diagnosis: Internal derangement right knee Postoperative Diagnosis: 1. Tear medial meniscus right knee 2. 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 Reactive synovitis medial, lateral and suprapatellar compartments right knee Procedure(s) Performed: 1. Arthroscopic partial medial meniscectomy right knee 2. Arthroscopic chondroplasty lateral femoral condyle right knee 3. Arthroscopic partial synovectomy medial, lateral and suprapatellar compartments right knee Anesthesia: ABDELRAHMANA, local Surgeon: Davon Diop Estimated Blood Loss (ml): 7 Pathology: none sent Condition: stable Disposition: PACU Indications for Procedure: 56-year-old patient seen with progressive right knee pain. After having treatment options discussed, she elected to proceed with arthroscopy. Operative Findings: see description of procedure Description of Procedure: Patient was taken to the operative suite. Patient underwent a general anesthetic by the department of anesthesia. Patient was given preoperative antibiotics. The right lower extremity was placed in a well-padded arthroscopic leg lizarraga. The right leg was prepped and draped in the normal sterile orthopedic fashion. A lateral parapatellar and suprapatellar incision was made. Trochars were inserted. Arthroscopy was initiated. Suprapatellar pouch revealed diffuse thick reactive synovitis. The patellofemoral joint appeared to articulate congruently. There was grade 1 chondromalacia of the patella with no osteochondral tears present. The scope was guided into the medial gutter. No loose bodies or plica were identified. The scope was then guided into the medial compartment. A medial parapatellar incision was made. Trocar inserted followed by probe. There was a complex tear involving the posterior medial meniscus. There were grade 1/2 chondromalacia changes the medial compartment with no osteochondral tears present. There was thick reactive synovitis anteriorly. I performed a partial medial meniscectomy getting down to stable meniscal tissue. I performed a partial synovectomy. The residual meniscus was found to be stable. There was good decompression of synovitis. Scope and probe were then guided into the intercondylar notch. Cruciates were identified, probed and found to be stable. The scope and probe were then guided into lateral compartment. Lateral meniscus revealed some superficial fraying the midbody area. There were grade 1/2 chondromalacia changes lateral femoral condyle weightbearing surface with some osteochondral flap tears present. There was thick reactive synovitis anteriorly. I introduced a motorized shaver and debrided out the area superficial fraying midbody lateral meniscus. I now performed a chondroplasty of the lateral femoral condyle getting down to stable osteochondral tissue. I performed a partial synovectomy decompressing reactive synovitis. The residual osteochondral surface of the lateral femoral condyle was stable. There was good decompression of synovitis. The scope was in guided back into the suprapatellar compartment. I introduced a motorized shaver into the suprapatellar compartment. I debrided some piecemeal fragments of meniscus that I encountered. I performed a partial synovectomy. Shaver was removed. There was good decompression of synovitis. Instruments were now removed from the joint. The joint was infiltrated with .25% Marcaine. Steri-Strips were applied to the portal sites. Sterile dressings were applied. The patient was placed into a RAVIN hose. No tourniquet was utilized. The patient was awakened, transferred to a bed and taken to recovery stable satisfactory condition.
[2021-06-13 16:24] LABS: Glucose,Whole Blood 121 mg/dL (75-99)
[2021-06-13 16:59] VITALS: BP 158/90; PULSE 68; RESP 18
== END 2021-06-13 17:17 | disposition home or self-care (01) ==
LOC: OR 13:05
PROVIDERS: ATTEND Orthopaedic Surgery
DX: M23.203 Derangement of unspecified medial meniscus due to old tear or injury, right knee (principal); M94.261 Chondromalacia, right knee; M65.861 Other synovitis and tenosynovitis, right lower leg; I10 Essential (primary) hypertension; E03.9 Hypothyroidism, unspecified; E11.9 Type 2 diabetes mellitus without complications; Z98.891 History of uterine scar from previous surgery; Z98.890 Other specified postprocedural states; Z88.0 Allergy status to penicillin; F17.210 Nicotine dependence, cigarettes, uncomplicated; Z95.5 Presence of coronary angioplasty implant and graft; E78.5 Hyperlipidemia, unspecified
CPT/HCPCS: 29881; J2400; J2250; J1100; J0690; J2405; J3010; J2704

== ENCOUNTER → 2021-10-04 | Outpatient (CLI) | payer MEDICARE, OTHER ==
--- NOTE | 2021-10-10 15:09 | PE ---
Nuclear medicine PET/CT HISTORY: Vulvar cancer, initial Patient received 8.9 mCi F-18 FDG intravenously and delayed scanning was performed from the skull bas e to the mid thighs. A localization and attenuation correction CT scan was performed. No comparisons Chest and neck: There is no evident cervical or supraclavicular adenopathy. There is an aorticopulmon frantz window node which is enlarged. No associated uptake. Enlargement of the retrocaval pretracheal no de is also present without associated uptake. No axillary or hilar adenopathy. There are coronary art karyn calcifications present. No pleural or pericardial effusion. No evident lung mass. Suspect underly ing interstitial changes within the lungs, possible emphysematous change. ABDOMEN: There is no evident liver mass. No ascites or retroperitoneal adenopathy. Left adrenal mass shows some low-attenuation and associated calcification and measures approximately 4.2 cm, no associa tevin uptake. Right adrenal gland is unremarkable. Lower pole the right kidney shows a cystic focus sanjuana suring 5.7 cm, no associated uptake, likely simple cyst. Aorta shows atheromatous changes. Uptake missy ng the bowel is likely physiologic but is indeterminate, there is diverticular change along the sigmo id colon. At the level of the vulva there is hypermetabolic uptake present. SUV is 12.2. No pelvic ad enopathy or free fluid. Uterus is not seen. Osseous structures show no associated uptake. Sclerosis of the sacroiliac joints may be due to stress changes. Some facet arthropathy changes noted within the spine. IMPRESSION: Findings consistent with vulvar carcinoma. No evident metastatic disease. Uptake in the s igmoid colon may be physiologic, consider bowel surveillance if this has not been performed.
== END | disposition home or self-care (01) ==
LOC: RADPETMAIN 10:18
PROVIDERS: ATTEND Obstetrics & Gynecology
DX: C51.9 Malignant neoplasm of vulva, unspecified (principal); F17.210 Nicotine dependence, cigarettes, uncomplicated
CPT/HCPCS: 78815; A9552

== ENCOUNTER → 2021-10-14 | Outpatient (CLI) | payer MEDICARE, OTHER ==
[2021-10-14 13:07] LABS: Appearance,Urine Cloudy (Clear); Bacteria,Urine Occasional /hpf; Bilirubin,Urine Negative (Negative); Blood,Urine Negative (Negative); Calcium Oxalate Crystals,Urine Moderate /hpf; Color,Urine Yellow; Glucose,Urine (UA) Negative (Negative); Ketones,Urine Negative (Negative); Leukocyte Esterase,Urine Trace (Negative); Mucus,Urine Many /hpf; Nitrite,Urine Negative (Negative); PH, Urine 5.5 (5.0-8.0); Protein,Urine Trace (Negative); RBC,Urine 1 /hpf (0-5); Specific Gravity,Urine 1.027 (1.001-1.035); Squamous Epithelial Cell,Urine 4 /hpf (0-4); WBC,Urine 3 /hpf (0-5)
[2021-10-14 18:21] LABS: Basophils # (A) 0.06 X 10*3/uL (0.00-0.10); Basophils % (A) 0.6 %; Eosinophils # (A) 0.15 X 10*3/uL (0.04-0.35); Eosinophils % (A) 1.5 %; HCT 45.8 % (37.2-46.3); HGB 14.4 g/dL (12.0-15.0); Immature Grans, Automated 0.6 %; Lymphocytes # (A) 3.48 X 10*3/uL (0.90-5.00); Lymphocytes % (A) 34.4 %; MCH 29.5 pg (27.0-32.0); MCHC 31.4 g/dL (32.0-37.0); MCV 93.9 fL (80.0-97.0); Mean Platelet Volume 12.3 fL (9.5-12.2); Monocytes # (A) 0.92 X 10*3/uL (0.20-1.00); Monocytes % (A) 9.1 %; NRBC Per 100 WBC 0 /100 WBCS (0.0-0.0); Neutrophils # (A) 5.45 X 10*3/uL (1.80-7.70); Neutrophils % (A) 53.8 %; Platelet Count 289 X 10*3/uL (140-440); RBC 4.88 X 10*6/uL (4.10-5.20); RDW 14.9 % (11.5-14.5); WBC 10.12 X 10*3/uL (4.50-10.00)
[2021-10-14 18:41] LABS: African American GFR (CKD) 96.5 (60.0-200.0); Anion Gap 11.5 mmol/L (10.00-18.00); BUN/Creat Ratio 9.73 Ratio (12.00-20.00); Blood Urea Nitrogen 7.7 mg/dL (9.0-27.0); Calcium 9.5 mg/dL (8.7-10.3); Carbon Dioxide 25.6 mmol/L (20.0-27.5); Non-African American GFR(CKD) 83.2 (60.0-200.0); Potassium 3.8 mmol/L (3.5-5.5)
== END | disposition home or self-care (01) ==
LOC: LABWHC1 10:58
PROVIDERS: ATTEND Obstetrics & Gynecology
DX: C51.9 Malignant neoplasm of vulva, unspecified (principal)
CPT/HCPCS: 36415; 80048; 81001; 85025

== ENCOUNTER → 2021-10-29 | Outpatient (CLI) | payer MEDICARE, OTHER ==
--- NOTE | 2021-10-29 19:08 | US ---
EXAMINATION TYPE: US venous doppler duplex LE BI DATE OF EXAM: 10/29/2021 1:53 PM COMPARISON: NONE CLINICAL HISTORY: 56-year-old female R22.43. Recent surgery. On heparin shots. Bilateral leg swelli ng. SIDE PERFORMED: Bilateral TECHNIQUE: The lower extremity deep venous system is examined utilizing real time linear array sonog fidel with graded compression, doppler sonography and color-flow sonography. FINDINGS: VESSELS IMAGED: Common Femoral Vein Deep Femoral Vein Greater Saphenous Vein * Femoral Vein Popliteal Vein Small Saphenous Vein * Proximal Calf Veins (* superficial vessels) Right Leg: Negative for DVT Left Leg: Negative for DVT IMPRESSION: No evidence for DVT within the bilateral lower extremities imaged from the groin to the upper calves.
== END | disposition home or self-care (01) ==
LOC: RADUSWWP 13:26
PROVIDERS: ATTEND Obstetrics & Gynecology
DX: C51.9 Malignant neoplasm of vulva, unspecified (principal); R22.43 Localized swelling, mass and lump, lower limb, bilateral
CPT/HCPCS: 93970

== ENCOUNTER 2021-11-09 07:31 | Emergency (ER) | payer MEDICARE, OTHER ==
[2021-11-09 07:38] VITALS: BP 142/82; PULSE 90; RESP 18; TEMP 98.6
--- NOTE | 2021-11-09 07:54 | ED ---
General Adult HPI - General Chief complaint: Recheck/Abnormal Lab/Rx Stated complaint: Post surgery, tube coming out Time Seen by Provider: 11/09/21 07:45 Source: patient, RN notes reviewed, old records reviewed Mode of arrival: ambulatory Limitations: no limitations - History of Present Illness Initial comments: This is a well-appearing 56-year-old female that presents to the emergency room with complaints of accidentally dislodging her MARILIA drain to her left groin that was placed on October 18 after a lymphnode dissection. Patient states the procedure was done at [facility] with Dr Beasley however she didn't want to drive there due to the weather. She denies any pain, no bleeding. -: hour(s) (1) Location: left (groin) Radiation: non-radiation Severity scale (1-10): 0 - Related Data Home Medications Medication Instructions Recorded Confirmed Atorvastatin [Lipitor] 40 mg PO DAILY 02/27/14 06/13/21 Metoprolol Tartrate [Lopressor] 25 mg PO BID 02/27/14 06/13/21 Nitroglycerin Sl Tabs [Nitrostat] 0.4 mg SL Q5M PRN 02/27/14 06/13/21 Aspirin 81 mg PO DAILY 05/09/14 06/11/21 ARIPiprazole [Abilify] 5 mg PO DAILY 05/16/19 06/13/21 Gabapentin [Neurontin] 600 mg PO BID 05/16/19 06/13/21 Insulin Glargine [Lantus] 40 units SQ DAILY 05/16/19 06/13/21 Levothyroxine Sodium [Synthroid] 25 mcg PO DAILY 05/16/19 06/13/21 Omeprazole [PriLOSEC] 20 mg PO AC-BID 05/16/19 06/13/21 buPROPion [Wellbutrin] 100 mg PO BID 05/16/19 06/13/21 lisinopriL 20 mg PO DAILY 05/16/19 06/13/21 metFORMIN HCL [Glucophage] 1,000 mg PO BID 05/16/19 06/13/21 Baclofen [Lioresal] 20 mg PO BID 06/11/21 06/13/21 Cilostazol [Pletal] 100 mg PO BID 06/11/21 06/11/21 Dulaglutide [Trulicity] 3 mg SQ MO 06/11/21 06/13/21 Naproxen Sodium [Aleve] 220 mg PO DAILY 06/11/21 06/11/21 Pregabalin 200 mg PO TID 06/11/21 06/13/21 rOPINIRole HCL [Requip] 1 mg PO TID 06/11/21 06/13/21 Previous Rx's Medication Instructions Recorded HYDROcodone/APAP 5-325MG [[place] 1 tab PO Q6HR PRN #12 tab 06/13/21 5-325] Allergies Allergy/AdvReac Type Severity Reaction Status Date / Time bee venom protein (honey bee) Allergy Rash/Hives Verified 11/09/21 07:38 coconut Allergy Rash/Hives Verified 11/09/21 07:38 Penicillins Allergy Rash/Hives Verified 11/09/21 07:38 Review of Systems ROS Statement: Those systems with pertinent positive or pertinent negative responses have been documented in the HPI. ROS Other: All systems not noted in ROS Statement are negative. Past Medical History Past Medical History: Coronary Artery Disease (CAD), Diabetes Mellitus, GERD/Reflux, Hyperlipidemia, Hypertension, Myocardial Infarction ([place]), Oste oarthritis (OA), Thyroid Disorder Additional Past Medical History / Comment(s): thyroid nodule, rls, neuropathy Last Myocardial Infarction Date:: 2012 History of Any Multi-Drug Resistant Organisms: None Reported Past Surgical History: Section, Heart Catheterization With Stent, Hysterectomy, Orthopedic Surgery Additional Past Surgical History / Comment(s): RT CARPAL TUNNEL release, left wrist fatty tissue removal, COLONOSCOPY Past Anesthesia/Blood Transfusion Reactions: No Reported Reaction Date of Last Stent Placement:: 2012 Past Psychological History: No Psychological Hx Reported Smoking Status: Current some day smoker - Past Family History Father Family Medical History: Myocardial Infarction ([place]) Mother Family Medical History: Cancer General Exam Limitations: no limitations General appearance: alert, in no apparent distress Eye exam: Absent: scleral icterus, conjunctival injection Respiratory exam: Present: normal lung sounds bilaterally. Absent: accessory muscle use Cardiovascular Exam: Present: regular rate, normal heart sounds GI/Abdominal exam: Present: soft, other (Left lower abdomen with MARILIA drain that has been dislodged). Absent: distended, tenderness Extremities exam: Present: normal capillary refill Neurological exam: Present: alert, oriented X3 Psychiatric exam: Present: normal affect, normal mood Skin exam: Present: warm, dry, normal color, other (Surgical incision with minimal serous drainage). Absent: cyanosis, diaphoretic, petechiae, pallor Course Vital Signs 11/09/21 07:32 Temperature 98.6 F Pulse Rate 90 Respiratory 18 Rate Blood Pressure 142/82 O2 Sat by Pulse 99 Oximetry Medical Decision Making - Medical Decision Making 56-year-old female presents after pulling out her MARILIA drain during shower today. I did speak with Jerry with Dr. Beasley's office who recommended completely removing the MARILIA drain and have her follow up with doctor's office as scheduled on . Drain was removed intact, there was minimal drainage noted, no bleeding, no pain. Site without erythema. Vital signs are stable. No complaints of fever. Gauze dressing was applied and patient discharged home with family. Case discussed with Dr. Whyte Disposition Clinical Impression: Encounter for change or removal of drains Disposition: HOME SELF-CARE Condition: Good Instructions (If sedation given, give patient instructions): Nicholas-Garcia Drain Care (ED), Acute Wound Care (ED) Additional Instructions: Keep wound clean and dry. Keep your appointment with your doctor on . Return to the emergency room with any new or concerning symptoms. Is patient prescribed a controlled substance at d/c from ED?: No Referrals: Radha Morel DO [Primary Care Provider] - 1-2 days Davonte Beasley MD [Family Provider] - 1-2 days Time of Disposition: 08:15
== END 2021-11-09 08:40 | disposition home or self-care (01) ==
LOC: EC 07:31
DX: Z48.03 Encounter for change or removal of drains (principal); E11.9 Type 2 diabetes mellitus without complications; I10 Essential (primary) hypertension; K21.9 Gastro-esophageal reflux disease without esophagitis; Z79.1 Long term (current) use of non-steroidal anti-inflammatories (NSAID); I25.2 Old myocardial infarction; E07.9 Disorder of thyroid, unspecified; Z79.890 Hormone replacement therapy; Z88.0 Allergy status to penicillin; Z91.018 Allergy to other foods; Z91.030 Bee allergy status
CPT/HCPCS: 99283

== ENCOUNTER → 2022-09-17 | Outpatient (CLI) | payer MEDICARE, OTHER ==
--- NOTE | 2022-09-17 19:42 | CT ---
EXAMINATION TYPE: CT chest wo con DATE OF EXAM: 09/17/2022 COMPARISON: Prior PET/CT October 04, 2021 HISTORY: Possible enlarged heart. Cough, SOB CT DLP: 982 mGycm. Automated Exposure Control for Dose Reduction was Utilized. TECHNIQUE: CT scan of the thorax is performed without IV contrast. FINDINGS: LUNGS: There are thin-walled cysts scattered throughout the left lung. There are a few tiny thin-wall ed cysts in the right mid lung anteriorly. Some groundglass opacity and reticulation is present bilat erally. No focal consolidation. No pleural effusion or pneumothorax is present bilaterally. MEDIASTINUM: Lack of IV contrast is noted to limit evaluation for mediastinal and especially hilar ad enopathy. There are no definitive greater than 1 cm mediastinal lymph nodes. No cardiomegaly or per icardial effusion is seen. Moderate coronary artery calcification is present. There is calcification at the level of the mitral valve. OTHER: Their is 3.7 x 2.3 cm round nonspecific low dense lesion left adrenal gland with small focal c alcification anteriorly. Mild to moderate multilevel anterior lateral spurring. IMPRESSION: Areas of mild edema bilaterally. No pleural effusion is seen. Thin-walled cystic changes are present bilaterally greater in the left lung. There is nonspecific left adrenal mass favors benig n etiology. No significant change from prior PET/CT 1 year earlier.
== END | disposition home or self-care (01) ==
LOC: RADCTMAIN 16:53
PROVIDERS: ATTEND Family Medicine
DX: J47.9 Bronchiectasis, uncomplicated (principal); J98.4 Other disorders of lung; E27.8 Other specified disorders of adrenal gland; R60.0 Localized edema
CPT/HCPCS: 71250

== ENCOUNTER → 2023-02-05 | Outpatient (CLI) | payer MEDICARE, OTHER ==
--- NOTE | 2023-02-05 15:03 | P.SLEEP ---
History of Present Illness DATE: 02/05/2023 CONSULTATION/NEW PATIENT EVALUATION HISTORY OF PRESENT ILLNESS/SLEEP-WAKE EVALUATION: 57-year-old lady had been ev aluated in the sleep center for possible obstructive sleep apnea hypopnea syndrome. SLEEP SCHEDULE: Usually sleep schedule from 11 PM to 4:45 AM on weekdays and from 11 PM to 10 AM on weekend. FALLING ASLEEP: Sometimes patient has difficulties with falling asleep, although no TV in bedroom. DURING SLEEP: Patient usually sleeps on the side position, stomach position or in the chair. Positive history of restless leg symptoms. Patient's has loud snoring and several awakenings from sleep with nocturia. No history of hypnogogical hallucinations, sleep paralysis, or cataplexy. DURING THE DAY/WAKE STATE: In the morning patient wake up tired, falling asleep during the day, was able to sleep. [place] sleepiness scale is 7. Patient takes naps at 8 AM and 5 PM. PAST MEDICAL HISTORY: Hypertension, coronary artery disease, diabetes mellitus, the referral nephropexy. PAST SURGICAL HISTORY: Tonsillectomy, kidney repair, surgical treatment of vulva cancer. MEDICATIONS: Atorvastatin 80 mg once a day, levothyroxine 112 g once a day, lisinopril 30 mg once a day, ropinirole 1 mg 3 times a day, aripiprazole 15 mg once a day, Lantus, Morris. SOCIAL HISTORY: Positive for smoking for more than 30 years trying to quit, alcohol consumption none. FAMILY HISTORY: Hypertension, cancer. REVIEW OF SYSTEMS: Snoring, multiple awakenings from sleep. No fevers. No double vision. No recent chest pain. No shortness of breath. No abdominal pain. No bleeding episodes. No blood in urine. No seizure episodes. PHYSICAL EXAMINATION: GENERAL: A pleasant patient without any distress. VITAL SIGNS: BP 99/66, HR 72, RR 16, weight 209.0 pounds, height 5 foot 2.5 inches, body mass index 37.6, temperature 96.8, oxygen saturation at room air 97%. HEENT: PERRLA, EOMI. Evaluation of oropharynx showed tongue protrudes midline, low position of soft palate Mallampati 4. NECK: Supple. No JVD. Thyroid is not palpable. 16.5 inches in circumference. LUNGS: Clear to percussion and to auscultation. Good air exchange. No wheezing or rhonchi. HEART: S1, S2 regular. No murmurs, gallops or rubs. ABDOMEN: Soft and nontender. Bowel sounds are present. No organomegaly appreciated. EXTREMITIES: No clubbing or cyanosis. RADIO ANTENNA INSTALLER: Awake, alert, and oriented x3. Cranial nerves 2 to 7 intact. There is no fasciculation or atrophy noted. No focal deficits observed. ASSESSMENT: 1. Loud snoring, multiple awakenings from sleep, extremely low position of soft palate Mallampati 4, wide neck 16.5 inches in circumference. Obstructive sleep apnea hypopnea syndrome. 2. Obesity, body mass index 37.6. 3. Hypertension. 4. Coronary artery disease, status post [place]. 5 history of rheumatoid arthritis. 6 . History of degenerative disc disease. 7. Acid reflux. 8. Positive history of smoking for more than 30 years, trying to quit. 9 . Restless leg syndrome. 10. Diabetes mellitus. 11. Status post surgical treatment for vulva cancer. 12. History of peripheral neuropathy. PLAN: 1. Polysomnography for evaluation of patient's breathing during sleep and to check for possible periodic limb movements. 2. CPAP/BiPAP titration if sleep study confirms obstructive sleep apnea- hypopnea syndrome. 3. Preferable position during sleep on the side. 4. No driving if patient feels any sleepiness. Patient is aware of civil and criminal liability for unsafe driving. 5. Sleep hygiene with regular sleep time for at least 7.5-8 hours. 6. Watching and losing weight. Thank you very much for referring this patient for consultation. Sincerely, Jose Peters MD, PhD, FAASM. Diplomat of [place] [employer], Sleep Medicine Board by [place] [employer] [place] [employer] Instructor of [employer] [facility] [place] Past Medical History Past Medical History: Coronary Artery Disease (CAD), Diabetes Mellitus, GERD/Reflux, Hyperlipidemia, Hypertension, Myocardial Infarction ([place]), Osteoarthritis (OA), Thyroid Disorder Additional Past Medical History / Comment(s): thyroid nodule, rls, neuropathy Last Myocardial Infarction Date:: 2012 History of Any Multi-Drug Resistant Organisms: None Reported Past Surgical History: Section, Heart Catheterization With Stent, Hysterectomy, Orthopedic Surgery Additional Past Surgical History / Comment(s): RT CARPAL TUNNEL release, left wrist fatty tissue removal, COLONOSCOPY Past Anesthesia/Blood Transfusion Reactions: No Reported Reaction Date of Last Stent Placement:: 2012 Past Psychological History: No Psychological Hx Reported Smoking Status: Current some day smoker - Past Family History Father Family Medical History: Myocardial Infarction ([place]) Mother Family Medical History: Cancer Medications and Allergies Home Medications Medication Instructions Recorded Confirmed Type Atorvastatin [Lipitor] 40 mg PO DAILY 02/27/14 06/13/21 History Metoprolol Tartrate [Lopressor] 25 mg PO BID 02/27/14 06/13/21 History Nitroglycerin Sl Tabs [Nitrostat] 0.4 mg SL Q5M PRN 02/27/14 06/13/21 History Aspirin 81 mg PO DAILY 05/09/14 06/11/21 History ARIPiprazole [Abilify] 5 mg PO DAILY 05/16/19 06/13/21 History Gabapentin [Neurontin] 600 mg PO BID 05/16/19 06/13/21 History Insulin Glargine [Lantus] 40 units SQ DAILY 05/16/19 06/13/21 History Levothyroxine Sodium [Synthroid] 25 mcg PO DAILY 05/16/19 06/13/21 History Omeprazole [PriLOSEC] 20 mg PO AC-BID 05/16/19 06/13/21 History buPROPion [Wellbutrin] 100 mg PO BID 05/16/19 06/13/21 History lisinopriL 20 mg PO DAILY 05/16/19 06/13/21 History metFORMIN HCL [Glucophage] 1,000 mg PO BID 05/16/19 06/13/21 History Baclofen [Lioresal] 20 mg PO BID 06/11/21 06/13/21 History Dulaglutide [Trulicity] 3 mg SQ MO 06/11/21 06/13/21 History Naproxen Sodium [Aleve] 220 mg PO DAILY 06/11/21 06/11/21 History Pregabalin 200 mg PO TID 06/11/21 06/13/21 History cilostazoL [Pletal] 100 mg PO BID 06/11/21 06/11/21 History rOPINIRole HCL [Requip] 1 mg PO TID 06/11/21 06/13/21 History HYDROcodone/APAP 5-325MG [[place] 1 tab PO Q6HR PRN #12 tab 06/13/21 Rx 5-325] Allergies Allergy/AdvReac Type Severity Reaction Status Date / Time bee venom protein (honey bee) Allergy Rash/Hives Verified 11/09/21 07:38 coconut Allergy Rash/Hives Verified 11/09/21 07:38 Penicillins Allergy Rash/Hives Verified 11/09/21 07:38 Sleep Note - Sleep Note Sleep Note: Temperature: Pulse Rate: Respiratory Rate: Blood Pressure: SpO2: Height: Weight: BMI: Neck Circumference:
== END ==
LOC: 3 N SLEEP 14:22
PROVIDERS: ATTEND Internal Medicine
DX: G47.33 Obstructive sleep apnea (adult) (pediatric) (principal); E66.9 Obesity, unspecified; I25.10 Atherosclerotic heart disease of native coronary artery without angina pectoris; M06.9 Rheumatoid arthritis, unspecified; K21.9 Gastro-esophageal reflux disease without esophagitis; G25.81 Restless legs syndrome; E11.22 Type 2 diabetes mellitus with diabetic chronic kidney disease; E11.42 Type 2 diabetes mellitus with diabetic polyneuropathy; E78.5 Hyperlipidemia, unspecified; I12.9 Hypertensive chronic kidney disease with stage 1 through stage 4 chronic kidney disease, or unspecified chronic kidney disease; N18.9 Chronic kidney disease, unspecified; I25.2 Old myocardial infarction; F17.200 Nicotine dependence, unspecified, uncomplicated; E11.40 Type 2 diabetes mellitus with diabetic neuropathy, unspecified; Z87.39 Personal history of other diseases of the musculoskeletal system and connective tissue; Z68.37 Body mass index [BMI] 37.0-37.9, adult; Z99.89 Dependence on other enabling machines and devices; Z79.899 Other long term (current) drug therapy; Z88.0 Allergy status to penicillin; Z91.030 Bee allergy status; Z91.018 Allergy to other foods; Z79.82 Long term (current) use of aspirin; Z79.84 Long term (current) use of oral hypoglycemic drugs; Z79.4 Long term (current) use of insulin; Z85.44 Personal history of malignant neoplasm of other female genital organs
CPT/HCPCS: 99211

== ENCOUNTER → 2023-07-10 | Outpatient (CLI) | payer MEDICARE, OTHER ==
[2023-07-10 16:34] LABS: African American GFR (CKD) 77 (>60 ml/min/1.73 sqM); Blood Urea Nitrogen 26 mg/dL (7-17); Non-African American GFR(CKD) 67 (>60 ml/min/1.73 sqM)
--- NOTE | 2023-07-14 09:20 | CT ---
EXAMINATION TYPE: CT chest wo/w con DATE OF EXAM: 07/10/2023 COMPARISON: 09/17/2022 HISTORY: chronic cough CT DLP: 899.7 mGycm Automated exposure control for dose reduction was used. CONTRAST: CT scan of the chest is performed without and with IV Contrast, patient injected with 100 mL of Isovu e 300. FINDINGS: LUNGS: Thin-walled cystic changes are redemonstrated. There is mild scattered subpleural fibrosis. No evidence for volume loss or consolidation. No pleural effusion present. Stable 2 mm nodule right upp er lobe image 30. MEDIASTINUM: There are no greater than 1 cm hilar or mediastinal lymph nodes. No pericardial effusi on is seen. Thoracic aorta is of normal caliber. The heart is not enlarged. UPPER ABDOMEN: Stable left adrenal mass. OTHER: No additional significant abnormality is seen. IMPRESSION: 1. Stable thin-walled cystic changes which are nonspecific. 2. Mild subpleural fibrosis. 3. Stable left adrenal mass.
== END | disposition home or self-care (01) ==
LOC: RADCTMAIN 15:59
PROVIDERS: ATTEND Family Medicine
DX: J98.4 Other disorders of lung (principal); J94.1 Fibrothorax; J47.9 Bronchiectasis, uncomplicated; J43.9 Emphysema, unspecified; E27.9 Disorder of adrenal gland, unspecified; R59.0 Localized enlarged lymph nodes; R91.1 Solitary pulmonary nodule
CPT/HCPCS: 82565; 84520; 71270; 36415; Q9967

== ENCOUNTER 2023-09-18 06:38 | Day surgery (SDC) | payer MEDICARE, OTHER ==
[2023-09-15 13:37] VITALS: BMI 34.9
[~2023-09-18 06:38] MED LIST changes: -LACTATED RINGERS 1,000 ML IV SCH; +LIDOCAINE 1% (10MG/ML) FOR IV START INTRADERMA PRN; -LIDOCAINE 1% 20 ML VIAL (10MG/ML) FOR IV START INTRADERMA PRN
[2023-09-18] MEDS: LACTATED RINGERS 1,000 ML IV SCH (07:05)
[2023-09-18 07:10] LABS: Glucose,Whole Blood 116 mg/dL (70-110)
[2023-09-18 07:12] VITALS: TEMP 97.8
[2023-09-18] MEDS ORDERED: PROPOFOL 10 MG/ML 20 ML VIAL IV ONE (07:20)
[2023-09-18] MEDS ORDERED: LIDOCAINE 1% INJ 10MG/ML (20 ML MDV) ONE (07:20)
--- NOTE | 2023-09-18 07:35 | P.PCN ---
Date of Procedure: 09/18/23 Procedure(s) Performed: BRIEF HISTORY: Patient is a 58-year-old, pleasant, female scheduled for an upper endoscopy as a part of evaluation of chronic cough for the last 1-1/2 years duration. She has occasional heartburn. Has been on omeprazole 20 mg daily with no change in his symptoms. She is scheduled for an upper endoscopy to evaluate further. PROCEDURE PERFORMED: Esophagogastroduodenoscopy with biopsy. PREOPERATIVE DIAGNOSIS: Chronic cough and occasional GERD. IV sedation per anesthesia. PROCEDURE: After informed consent was obtained, the patient was brought into the endoscopy unit. IV sedation was administered by Anesthesia under continuous monitoring. Initially the Olympus GIF-140 video endoscope was inserted into the mouth. Esophagus intubated without any difficulty. It was gradually advanced into the stomach and duodenum and carefully examined. The bulb and the second part of the duodenum appeared normal. The scope at this time was withdrawn to the stomach, adequately insufflated with air, and upon careful examination, mucosa of the antrum, mild gastritis and biopsies were done from this area. Mucosa of the body, cardia and the fundus appeared normal. There was moderate amount of solid food in the stomach suggestive of diabetic gastroparesis. The scope was then withdrawn into the esophagus. The GE junction was located at 39 cm from the incisors. There was circumferential erythema the GE junction consistent with LA grade a reflux esophagitis. The esophagus appeared normal. There were no erosions or ulcerations seen and biopsies were done from the distal esophagus and the patient tolerated the procedure well. IMPRESSION: 1. Mild antral gastritis. 2. Retained food in the stomach suggestive of diabetic gastroparesis 3. Circumferential erythema the GE junction consistent with LA grade a reflux esophagitis. RECOMMENDATIONS: The findings of this examination were discussed with the patient as well as a her family. All with the biopsy results. She was advised to increase omeprazole to 20 mg twice daily to be taken half hour before breakfast and dinnertime and follow antireflux measures. Also recommend small frequent meals..
[2023-09-18 07:53] LABS: Glucose,Whole Blood 109 mg/dL (70-110)
[2023-09-18 08:10] VITALS: BP 107/64; PULSE 80; RESP 18
== END 2023-09-18 08:59 ==
LOC: ORWHC2ENDO 06:38
PROVIDERS: ATTEND Internal Medicine Gastroenterology
DX: K29.50 Unspecified chronic gastritis without bleeding (principal); K31.9 Disease of stomach and duodenum, unspecified; K21.00 Gastro-esophageal reflux disease with esophagitis, without bleeding; Z79.899 Other long term (current) drug therapy
CPT/HCPCS: 88305; 43239; J2001; J2704

== ENCOUNTER → 2024-07-27 | Outpatient (CLI) | payer MEDICARE, OTHER ==
--- NOTE | 2024-08-01 11:06 | MM ---
Reason for Exam: Screening (asymptomatic). Last mammogram was performed 1 year(s) and 5 month(s) ago. Patient History: Menarche at age 10. First Full-Term at age 22. Hysterectomy at age 26. Postmenopausal. Risk Values: Char 5 year model risk: 1.4%. NCI Lifetime model risk: 7.2%. Prior Study Comparison: 06/07/2018 Bilateral Screening Mammogram, [facility]. 09/13/2019 Bilateral Screening Mammogram, [facility]. 03/06/2023 Bilateral MG 3D screening mammo w/cad, [facility]. Tissue Density: There are scattered areas of fibroglandular density. Findings: Analyzed By CAD. Right breast: There is no suspicious group of microcalcifications or new suspicious mass. Left breast: There is no suspicious group of microcalcifications or new suspicious mass. Overall Assessment: Negative, BI-RAD 1 Management: Screening Mammogram of both breasts in [address] [facility] will attempt to contact patient to return for supplemental views and ultrasound if indicated. Patient should continue monthly self-breast exams. A clinical breast exam by your physician is recommended on an annual basis. This exam should not preclude additional follow-up of suspicious palpable abnormalities. Note on Char scores and lifetime risk: 1. A Char score greater than 3% is considered moderate risk. If this is the case, consider specialist referral to assess eligibility for a risk reducing agent. 2. If overall lifetime risk for the development of breast cancer is 20% or higher, the patient may qualify for future screening with alternating mammogram and breast MRI. [facility], , 08/01/2024 11:02 AM. Electronically signed and approved by: Corona Dover DO
== END | disposition home or self-care (01) ==
LOC: RADMAMWWP 06:46
PROVIDERS: ATTEND Family Medicine
DX: Z12.31 Encounter for screening mammogram for malignant neoplasm of breast (principal); Z78.0 Asymptomatic menopausal state; R92.323 Mammographic fibroglandular density, bilateral breasts
CPT/HCPCS: 77063; 77067